=== PATIENT | female | born 1965 | race Hispanic/Latino ===

== ENCOUNTER 2019-01-05 08:58 | Inpatient (IN) | payer BC ==
[~2019-01-05] VITALS: Ht 152.4 cm; Wt 52.2 kg
[2019-01-05 09:13] LABS: APPEARANCE,URINE Cloudy (CLEAR); BILIRUBIN,URINE Negative (NEGATIVE); COLOR,URINE Yellow (YELLOW); GLUCOSE, URINE (UA) Negative (NEGATIVE); KETONES,URINE >=80 mg/dL (NEGATIVE); LEUKOCYTE ESTERASE ,URINE Negative (NEGATIVE); NITRATE,URINE Negative (NEGATIVE); OCCULT BLOOD,URINE Negative (NEGATIVE); PH,URINE 8.5 (5.0-8.0); PROTEIN,URINE Trace mg/dL (NEGATIVE)
[2019-01-05 09:24] LABS: BACTERIA,URINE Rare /HPF (None Seen); MUCUS,URINE Moderate LPF (None Seen); RBC,URINE None Seen /HPF (0-1); SQUAMOUS EPITHELIAL CELL,UR 30-50 /HPF (0-2); WBC,URINE None Seen /HPF (0-1)
[2019-01-05 09:47] LABS: BASOPHILS % (AUTO) 0.3 % (0.0-5.0); EOSINOPHILS % (AUTO) 0.6 % (0.0-8.0); HEMATOCRIT 37.5 % (36-48); LYMPHOCYTES % (AUTO) 6.4 % (21.0-51.0); MEAN CORPUSCULAR HEMOGLOBIN 30.8 pg (27.0-33.0); MEAN CORPUSCULAR HGB CONC 33.7 g/dL (32.0-36.0); MEAN CORPUSCULAR VOLUME 91.4 fL (79-99); MONOCYTES % (AUTO) 6.7 % (3.0-13.0); PLATELET COUNT (AUTO) 209 K/uL (130-400); RED CELL DISTRIBUTION WIDTH 13.9 % (11.0-15.5); WHITE BLOOD COUNT (AUTO) 8.4 K/uL (4.8-10.8)
[2019-01-05 09:58] LABS: CREATININE 0.7 mg/dL (0.5-1.5); POTASSIUM 3.4 mmol/L (3.5-5.1)
[2019-01-05 10:04] LABS: ALBUMIN 3.6 g/dL (3.5-5.0); BILIRUBIN,TOTAL 0.4 mg/dL (0.2-1.0); TOTAL PROTEIN, SERUM 7.4 g/dL (6.0-8.3)
[2019-01-05] MEDS ORDERED: IOHEXOL-350 75 ML VIAL IV ONE (10:36)
[2019-01-05] MEDS ORDERED: METRONIDAZOLE 500MG/100ML BAG 100 ML ONE (11:33)
[2019-01-05] MEDS: LACTATED RINGERS 1000ML 1,000 ML IV SCH ×2 (12:33→20:13)
[2019-01-05] MEDS ORDERED: ONDANSETRON HCL 4 MG/2 ML VIAL IV PRN (12:45)
[2019-01-05] MEDS ORDERED: MAG HYDROX/AL HYDROX/SIMETH ES 30 ML SUSP UDCUP PO PRN (12:45)
[2019-01-05] MEDS ORDERED: HYDRALAZINE HCL 20 MG/ML VIAL IV PRN (12:45)
[2019-01-05] MEDS ORDERED: LACTULOSE 20 GM/30 ML UDCUP PO PRN (12:45)
[2019-01-05] MEDS ORDERED: ACETAMINOPHEN 325 MG TAB PO PRN ×2 (12:45)
[2019-01-05] MEDS ORDERED: GUAIFENESIN-DM 200/20 MG 10 ML PO PRN (12:45)
[2019-01-05] MEDS ORDERED: NITROGLYCERIN 0.4 MG SL TAB SL PRN (12:45)
[2019-01-05] MEDS: METRONIDAZOLE 500MG/100ML BAG 100 ML IV SCH ×2 (12:45→20:13)
[2019-01-05] MEDS ORDERED: DiphenhydrAMINE HCL 50 MG/ML VIAL IV PRN (12:45)
[2019-01-05] MEDS ORDERED: DIPHENHYDRAMINE HCL 25 MG CAPSULE PO PRN (12:45)
[2019-01-05] MEDS ORDERED: ONDANSETRON HCL 4 MG/2 ML VIAL ONE (13:05)
[2019-01-05] MEDS ORDERED: LEVOFLOXACIN 750 MG/D5W 150 ML 150 ML ONE (13:05)
[2019-01-05] MEDS ORDERED: KETOROLAC TROMETHAMINE 15MG/ML ONE (13:05)
[2019-01-05] MEDS ORDERED: SODIUM CHLORIDE 0.9% 1000ML 1,000 ML IV ONE (13:07)
[2019-01-05 15:00] VITALS: BP 102/51
--- NOTE | 2019-01-05 15:20 | NUR ---
NOTE ARRIVED FROM E.R. AT THIS TIME. BBS CLEAR NO DISTRESS SOB OR CHEST PAIN, NO N/V NO OTHER PROBLEMS VOICED. DX DIVERTICULITIS. REPORTS SOME ABDOMINAL DISCOMFORT BUT NOT MUCH SHE WAS EXPERIENCING ON ARRIVAL. BOWEL SOUNDS ACTIVE, DENIES DIARRHEA OR BLOOD STOOLS. SHE IS NPO WITH SOME ICE CHIPS ONLY. OTHERWISE ABX AND IVF ONLY.
[2019-01-05 16:00] VITALS: BP 92/55
[2019-01-05 20:00] VITALS: BP 96/53
[2019-01-05] MEDS: FAMOTIDINE/PF 20 MG/2 ML VIAL IV SCH (20:13)
--- NOTE | 2019-01-05 20:13 | NUR ---
MEDS SHIFT ASSESSMENT DONE, PLEASE REFER TO CPOE. DUE MEDS ADMINISTERED, TOLERATE DWELL. NO DISTRESS NOTED. KEPT RESTED AND COMFORTABLE. CALL LIGHT WITHIN REACH. WILL MONITOR PT. Addendum: 01/06/19 at 0051 by GONZALEZ DAVILA RN RN Amended: Links added.
--- NOTE | 2019-01-05 22:00 | NUR ---
ROUNDS PT RESTING WELL, NO DISTRESS NOTED. NO CONCERNS VERBALIZED. KEPT RESTED AND COMFORTABLE. ENCOURAGED TO REST AND SLEEP. CALL LIGHT WITHIN REACH. WILL MONITOR PT.
[2019-01-05 23:41] VITALS: BP 99/53
[2019-01-06] VITALS (7 sets, daily range): BP systolic 94–118; BP diastolic 30–74
--- NOTE | 2019-01-06 02:00 | NUR ---
ROUNDS PT FAIRLY ASLEEP WITH RESPIRATIONS EVEN AND UNLABORED. NO NOTED DISTRESS. KEPT UNDISTURBED FOR NOW. WILL MONITOR PT.
[2019-01-06] MEDS: METRONIDAZOLE 500MG/100ML BAG 100 ML IV SCH ×3 (04:37→21:10)
[2019-01-06] MEDS: LACTATED RINGERS 1000ML 1,000 ML IV SCH (05:37)
[2019-01-06 05:52] LABS: BASOPHILS % (AUTO) 0.3 % (0.0-5.0); EOSINOPHILS % (AUTO) 0.2 % (0.0-8.0); HEMATOCRIT 31.7 % (36-48); LYMPHOCYTES % (AUTO) 8.7 % (21.0-51.0); MEAN CORPUSCULAR HEMOGLOBIN 31.6 pg (27.0-33.0); MEAN CORPUSCULAR HGB CONC 34.2 g/dL (32.0-36.0); MEAN CORPUSCULAR VOLUME 92.4 fL (79-99); MONOCYTES % (AUTO) 7.5 % (3.0-13.0); NEUTROPHILS % (AUTO) 83.3 % (40.0-77.0); PLATELET COUNT (AUTO) 169 K/uL (130-400); RED BLOOD CELL COUNT(AUTO) 3.43 MIL/uL (4.00-5.50); RED CELL DISTRIBUTION WIDTH 13.8 % (11.0-15.5); WHITE BLOOD COUNT (AUTO) 7.7 K/uL (4.8-10.8)
[2019-01-06 06:03] LABS: CREATININE 0.6 mg/dL (0.5-1.5); POTASSIUM 3.2 mmol/L (3.5-5.1)
--- NOTE | 2019-01-06 06:10 | NUR ---
ROUNDS PT ALREADY AWAKE. DENIES ANY ABDOMINAL PAINS AT THIS TIME. KEPT RESTED AND COMFORTABLE IN BED. FOR MORE CARE.
[2019-01-06] MEDS: FAMOTIDINE/PF 20 MG/2 ML VIAL IV SCH ×2 (08:36→21:10)
[2019-01-06] MEDS: ENOXAPARIN SODIUM 30 MG/0.3 ML SQ SCH (08:49)
[2019-01-06] MEDS: LEVOFLOXACIN 750 MG/D5W 150 ML 150 ML IV SCH (10:38)
--- NOTE | 2019-01-06 13:59 | NUR ---
DCP CM met with pt discussed dc plans. Pt is independent prior to admission, lives at home with spouse. Denies any equipments/services. Pt feels safe to go back home, still drives and works, spouse able to assist with transportation and needs as necessary. DC plan to home once stable. CM to cont to follow up. Addendum: 01/06/19 at 1400 by ANGELIC FR[place] LVN CM Amended: Links added.
[2019-01-06] MEDS ORDERED: POTASSIUM CHLORIDE 20MEQ/100ML 100 ML IV PRN (15:45)
[2019-01-06] MEDS ORDERED: LIDOCAINE HCL-MPF 1% 2ML VIAL IV PRN (15:45)
[2019-01-06] MEDS ORDERED: POTASSIUM CHLORIDE 10% ELIXIR 20 MEQ/15 ML UDCUP PO PRN (15:45)
[2019-01-06] MEDS: POTASSIUM CHLORIDE 20 MEQ ERTAB PO PRN ×3 (16:24→21:11)
--- NOTE | 2019-01-06 21:10 | NUR ---
MEDS SHIFT ASSESSMENT DONE, PLEASE REFER TO CHART. DUE MEDS ADMINISTERED, TOLERATED WELL. KEPT RESTED AND COMFORTABLE. CALL LIGHT WITHIN REACH. WILL MONITOR PT. Addendum: 01/07/19 at 0248 by GONZALEZ DAVILA RN RN Amended: Links added.
--- NOTE | 2019-01-07 02:00 | NUR ---
ROUNDS PT RESTING WELL, NO DISTRESS NOTED. KEPT RESTED AND COMFORTABLE. CALL LIGHT WITHIN REACH. WILL MONITOR PT.
[2019-01-07 03:35] VITALS: BP 111/73
[2019-01-07] MEDS: LACTATED RINGERS 1000ML 1,000 ML IV SCH ×2 (03:43→14:33)
[2019-01-07 04:43] LABS: BASOPHILS % (AUTO) 0.9 % (0.0-5.0); EOSINOPHILS % (AUTO) 2.1 % (0.0-8.0); HEMATOCRIT 29.7 % (36-48); LYMPHOCYTES % (AUTO) 20.7 % (21.0-51.0); MEAN CORPUSCULAR HEMOGLOBIN 31.3 pg (27.0-33.0); MEAN CORPUSCULAR HGB CONC 34.4 g/dL (32.0-36.0); MEAN CORPUSCULAR VOLUME 90.9 fL (79-99); MONOCYTES % (AUTO) 11.6 % (3.0-13.0); NEUTROPHILS % (AUTO) 64.7 % (40.0-77.0); PLATELET COUNT (AUTO) 172 K/uL (130-400); RED BLOOD CELL COUNT(AUTO) 3.27 MIL/uL (4.00-5.50); RED CELL DISTRIBUTION WIDTH 13.8 % (11.0-15.5); WHITE BLOOD COUNT (AUTO) 4.3 K/uL (4.8-10.8)
[2019-01-07 04:51] LABS: CREATININE 0.7 mg/dL (0.5-1.5); POTASSIUM 4.2 mmol/L (3.5-5.1)
[2019-01-07] MEDS: METRONIDAZOLE 500MG/100ML BAG 100 ML IV SCH ×2 (05:06→14:47)
--- NOTE | 2019-01-07 06:00 | NUR ---
ROUNDS PT RESTING WELL. NO CONCERNS VERBALIZED. KEPT RESTED AND COMFORTABLE. FOR MORE CARE.
[2019-01-07 07:57] VITALS: BP 109/64
[2019-01-07] MEDS: ENOXAPARIN SODIUM 30 MG/0.3 ML SQ SCH (09:13)
[2019-01-07] MEDS: FAMOTIDINE/PF 20 MG/2 ML VIAL IV SCH (09:13)
[2019-01-07] MEDS: LEVOFLOXACIN 750 MG/D5W 150 ML 150 ML IV SCH (09:13)
[2019-01-07 12:00] VITALS: BP 91/72
[2019-01-07] MEDS ORDERED: CIPR750T6 PO (15:05)
[2019-01-07] MEDS ORDERED: METR-172 PO (15:08)
--- NOTE | 2019-01-07 16:50 | NUR ---
DISCHARGE HOME . . VOICED NO C/O OF STOMACH PAIN .OR NAUSEA. TOLERATE DIET WELL. PT TO SEE HER PRIVATE IN 2-3 DAYS.
== END 2019-01-07 16:46 | disposition home or self-care (01) | DRG 392 ==
LOC: EDH 08:58 → EDHIP 12:33 → 4CH 14:43
PROVIDERS: ADMIT Family Medicine; ATTEND Family Medicine
DX: K57.32 Diverticulitis of large intestine without perforation or abscess without bleeding (principal); E87.1 Hypo-osmolality and hyponatremia; E87.6 Hypokalemia
CPT/HCPCS: 36415; 74177; 80048; 80053; 81001; 81025; 83690; 85025; G0378; J1650; J1885; J1956; J2405; J3490; J7030; J7120; Q9967

== ENCOUNTER → 2025-03-19 | Outpatient (CLI) | payer BC ==
[~2025-03-19] MED LIST: CIPR750T6 PO; IOHEXOL-350 50ML VIAL IV ONE; METR-172 PO
--- NOTE | 2025-03-19 22:29 | HMCIMG ---
EXAMINATION: CT of the Cervical Spine without Contrast CLINICAL HISTORY: Cervical radiculopathy. TECHNIQUE: Axial CT images of the cervical spine were obtained without intravenous contrast. Reformatted sagittal and coronal images were reviewed. Radiation Dose: total exam DLP: 451.90. Total CTDI Volume: 21.80. Intravenous contrast was adminstered. COMPARISON: No prior imaging studies available. FINDINGS: Alignment: Cervical lordosis is reduced. Vertebral Bodies and Endplates: Anterior and posterior marginal osteophytes are present at multiple levels with endplate sclerosis. Multilevel uncovertebral joint osteophytes are also noted. C2-C3: No significant neural foraminal narrowing. C3-C4: Grade IIIII bilateral neural foraminal narrowing, more pronounced on the right side. C4-C5: Central and bilateral foraminal disc protrusion causing neural foraminal narrowing, right greater than left. C5-C6: Uncovertebral osteophytes cause bilateral neural foraminal narrowing, right greater than left. C6-C7: Grade I bilateral neural foraminal narrowing. C7-T1: No significant spinal canal or neural foraminal narrowing. Soft Tissues: No abnormal prevertebral soft tissue swelling or post-contrast enhancement. Biapical pleuroparenchymal scarring is present. Minimal mucosal thickening in the floor of the left maxillary sinus. IMPRESSION: * Multilevel degenerative changes of the cervical spine with anterior and posterior marginal osteophytes, uncovertebral joint osteophytes, and endplate sclerosis. * Bilateral neural foraminal narrowing most pronounced at C3-C4 and C4-C5, right greater than left, potentially correlating with cervical radiculopathy. * No enhancing mass lesion. Recommend further evaluation with cervical spine MRI to assess for nerve root impingement. /[place]
== END ==
LOC: RAH 11:12
PROVIDERS: ATTEND Student in an Organized Health Care Education/Training Program
DX: M50.121 Cervical disc disorder at C4-C5 level with radiculopathy (principal); M47.22 Other spondylosis with radiculopathy, cervical region; M48.02 Spinal stenosis, cervical region; M25.78 Osteophyte, vertebrae
CPT/HCPCS: 72127; Q9967